=== PATIENT | male | born 1980 | race Two or more races ===

== ENCOUNTER 2022-08-17 06:49 | Day surgery (SDC) | payer BC ==
[~2022-08-17] VITALS: Ht 185.4 cm; Wt 104.5 kg
[2022-08-17] MEDS ORDERED: CYMBALTA20 MG PO (07:12)
[2022-08-17] MEDS ORDERED: CIALIS2.5 MG PO (07:12)
--- NOTE | 2022-08-17 10:02 | NUR ---
08/17/22 Jessa Rodríguez [id number]-PATIENT ARRIVED TO PACU ON RA RR EVEN REACTIVE TO VERBAL STIMULI PATIENT LAYING LEFT LATERAL WITH WASHCLOTH ON FOREHEAD. PATIENT HAS BEEN SWEATY PER OR RNS. PATIENT REPORTS "STOMACH HURTS A LITTLE" DENIES NAUSEA. ENCOURAGED TO PASS GAS. IVF INFUSING. ORIENTED TO PACU. ENCOURAGED TO REST AND DOZES BACK TO SLEEP.
--- NOTE | 2022-08-17 16:47 | OR ---
[facility] [address], [place] [address] Signed DATE OF OPERATION: 08/17/2022 SURGEON: Renny Archer MD PREOPERATIVE DIAGNOSES: 1. Diverticulitis versus unspecified colitis on CT scan. 2. Father with a history of Crohn disease. POSTOPERATIVE DIAGNOSES: 1. Moderate sigmoid diverticulosis. 2. Tortuous and fixed sigmoid colon. 3. Moderate bowel prep. PROCEDURE: Colonoscopy without biopsy. ESTIMATED BLOOD LOSS: None. 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 He has had suprapubic abdominal pain a few times over the years. Most recently, a CT scan showed most likely sigmoid diverticulitis, but could be unspecified colitis. He responded well to his Cipro and Flagyl. He knows his father has had a history of Crohn disease for years. He had been to his primary care provider. He was asked to see me with respect to the above for a colonoscopy. In the office, I gave him a pamphlet on colonoscopy. We also gave him a pamphlet on diverticulosis, which we reviewed together. We did review the medical versus surgical therapy for diverticulosis. He said the diverticulitis never affects his urinary symptoms. He understands colonoscopy well. There is risk including, but not limited to gas bloating, crampy abdominal pain, bleeding, perforation requiring surgery, and missed diagnosis. We also reviewed the need for IV conscious sedation. He had expressed understanding and wished to proceed. PROCEDURE NOTE: Humberto was taken into our endoscopy suite and placed in the left lateral decubitus position. He was given divided doses of 9 mg of Versed and 175 mcg of fentanyl. Even then, he was frequently awake and talking to us looking at the screen and moaning. In the future, he would be much better served with monitored anesthesia care and propofol infusion. A digital rectal exam was performed, he had good sphincter tone. No external hemorrhoids that we could see. There were no masses. We did not check the prostate Electronically Signed By: RENNY ARCHER MD 08/17/22 1647 PATIENT NAME: HUMBERTO EISENBERG OPERATIVE REPORT DATE OF : 84 REPORT #: [id number] PHYSICIAN: RENNY ARCHER MD PCP: HEATH DAMON MD REPORT IS CONFIDENTIAL AND NOT TO BE RELEASED WITHOUT AUTHORIZATION [facility] [address], [place] [address] Signed specifically. After this, the adult colonoscope had been introduced and advanced under direct visualization of the camera. As expected, his sigmoid colon was a bit difficult. He clearly has moderate sigmoid diverticulosis. The sigmoid colon is tortuous and fixed from repeated episodes of inflammation. After a few minutes then, we came into the left colon and it was quite spacious after that. The scope passed up nicely right up to the ileocecal valve. The scope was continuously dragged back in the sigmoid colon, we could not quite get into the cecum itself. We used additional sedation and abdominal compression. We could not quite make it in the cecum. We saw most of the cecum. After this, the scope was then slowly withdrawn. We took pictures throughout for photodocumentation. His entire colon is unremarkable except the sigmoid colon. Again, he has moderate diverticulosis with a tortuous and thick sigmoid colon. The rectum itself was unremarkable. Upon retroflexion of the scope, he has routine internal hemorrhoid tissue. After this, the gas was suctioned out and the colonoscope removed. Humberto tolerated the procedure quite well. RECOMMENDATIONS: Humberto can return at age 47 with a double bowel prep and the use of monitored anesthesia care with propofol. He can follow up my office as needed. Renny Archer MD ALB/MODL /[id number] cc: MD Renny Sweet MD Copies: HEATH DAMON MD, ANDREW L MD ~ Electronically Signed By: RENNY ARCHER MD 08/17/22 1647 PATIENT NAME: HUMBERTO EISENBERG OPERATIVE REPORT DATE OF : 84 REPORT #: [id number] PHYSICIAN: RENNY ARCHER MD PCP: HEATH DAMON MD REPORT IS CONFIDENTIAL AND NOT TO BE RELEASED WITHOUT AUTHORIZATION
== END 2022-08-17 10:50 | disposition home or self-care (01) ==
LOC: DS 06:49
PROVIDERS: ATTEND Colon & Rectal Surgery
PROC: 0DJD8ZZ Inspection of Lower Intestinal Tract, Via Natural or Artificial Opening Endoscopic (ICD-10-PCS; principal; 2022-08-17 09:00)
DX: K57.30 Diverticulosis of large intestine without perforation or abscess without bleeding (principal); K63.89 Other specified diseases of intestine; G47.33 Obstructive sleep apnea (adult) (pediatric); F41.9 Anxiety disorder, unspecified; Z83.79 Family history of other diseases of the digestive system
CPT/HCPCS: 99153; G0500; J2250; J3010